=== PATIENT | male | born 1960 | race Caucasian/White ===

== ENCOUNTER 2024-06-18 11:17 | Emergency (ER) | payer SELFPAY ==
[~2024-06-18] VITALS: Ht 170.2 cm; Wt 97.5 kg
[2024-06-18] MEDS ORDERED: LISINOPRIL5 MG PO (11:51)
[2024-06-18] MEDS: SODIUM CHLORIDE 0.9% 1000ML 1,000 ML IV ONE (11:52)
[2024-06-18 13:32] VITALS: PULSE 50; RESP 16; TEMP 97.9; O2SAT 99
== END 2024-06-18 13:36 | disposition home or self-care (01) ==
LOC: FSED 11:21
DX: R42 Dizziness and giddiness (principal); H53.2 Diplopia; R00.1 Bradycardia, unspecified; R55 Syncope and collapse; R11.2 Nausea with vomiting, unspecified; I10 Essential (primary) hypertension; E78.5 Hyperlipidemia, unspecified; R94.31 Abnormal electrocardiogram [ECG] [EKG]
CPT/HCPCS: 70450; 71046; 80053; 81003; 84484; 85025; 85379; 93005; 99284; J7030